=== PATIENT | male | born 2000 | race Caucasian/White ===

== ENCOUNTER 2022-05-01 11:41 | Emergency (ER) | payer OTHER, BC | END 2022-05-01 12:30 | disposition home or self-care (01) | LOC: ER1 11:41 | DX: S43.402A Unspecified sprain of left shoulder joint, initial encounter (principal); V86.99XA Unspecified occupant of other special all-terrain or other off-road motor vehicle injured in nontraffic accident, initial encounter | CPT/HCPCS: 73030; 73060; 99283 ==